=== PATIENT | female | born 1990 | race Two or more races ===

== ENCOUNTER 2017-08-30 18:10 | Emergency (ER) | payer MEDICAID ==
[~2017-08-30] VITALS: Ht 157.5 cm; Wt 90.3 kg
[2017-08-30 18:22] VITALS: BP 124/83
== END 2017-08-30 19:33 | disposition home or self-care (01) ==
LOC: ER 18:10
DX: J06.9 Acute upper respiratory infection, unspecified (principal); J45.909 Unspecified asthma, uncomplicated; Z88.0 Allergy status to penicillin